=== PATIENT | female | born 2005 | race Caucasian/White ===

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

== ENCOUNTER 2025-05-12 11:44 | Outpatient (CLI) | payer OTHER, SELFPAY ==
--- OUTSIDE RECORDS SUMMARY | 2025-05-12 12:01 | XMS_ITS | Clinical Summary ---
Author Organization [facility] ospital Address [address] [place] [address] Care Team Providers Care Landmen Name Role Phone Carmelo Thacker MD Primary Care Provider [phone] Allergies No known active allergies Medications No [...] History Growth Chart Information Age Height Weight Gyfkex-fou-cdie th Percentile BMI Percentile Head Circum Head Circum Percentile Date 18 years 165.1 cm (5' 5) 54.4 kg (120 lb) 29.12%* 2023 12 years 162.6 cm (5' 4) 45.4 kg (100 lb) 26.73%* 2017 11 years 160 cm (5' 2.99) 43.1 kg (95 lb 0.3 oz) 33.00%* 2016 8 years 134.6 cm (4' 5) 26.8 kg (58 lb 15.9 oz) 22.69%* 2013 * [facility] (Girls, 2-20 Years) Last Filed Vital Signs Vital Sign Reading Time Taken Comments Blood Pressure 106/60 04/05/2017 1:58 PM CDT Pulse 87 04/05/2017 1:58 PM CDT Temperature - - Respiratory Rate - - Oxygen Saturation 99% 04/05/2017 1:58 PM CDT Inhaled Oxygen Concentration - - Weight 54.4 kg (120 lb) 06/09/2024 3:04 PM CDT Height 165.1 cm (5' 5) 06/09/2024 3:04 PM CDT Body Mass Index 19.97 06/09/2024 3:04 PM CDT Body Mass Index Percentile 29.12% 06/09/2024 3:0 4 PM CDT Growth Chart: [facility] (Girls, 2- 20 Years) Plan of Treatment Health Maintenance Due Date Last Done Comments Depression Screening 2005 Hepatitis C Screening 2005 Varicella Vaccines (2 of 2 - 2-dose childhood series) 2009 10/24/2006 DTaP/Tdap/Td Vaccine (2 - Tdap) 2016 7 HPV Vaccines (1 - 3-dose series) 2020 Meningococcal B Vaccine (1 o f 2 - Standard) 2021 Hepatitis B Screening 2023 Regular Well Visit/Exam 18-64 2023 Influenza Vaccine (#1) 2025 Pneumococcal vaccine <65 Aged Out 10/24/2006 No longer eligible based on patient's age to complete this topic Meningococcal Vaccine Completed 12/13/2022 Insurance [employer] [facility] H[facility]/PP[facility] Address: [address] [place] [phone] [employer] [facility]O Address: [address] [place] [phone] [employer] [facility] H[facility]O Address: [address] [place] [phone] Care Teams Landmen Relationship Specialty Start Date End Date Carmelo Thacker MD PCP - General Internal Medicine 05/28/24
--- OUTSIDE RECORDS SUMMARY | 2025-05-12 12:01 | XMS_ITS | Clinical Summary ---
Author Organization [facility] Address [address] [place] [address] Care Team Providers Care Inside Solar Sales Consultant Name Role Phone River Delarosa MD Primary Care Provider [phone] Source Comments [facility],non-owned Affiliates and Associated Physician Practices is amultiple site organization consisting of ambulatory clinics and hospital sitesin [place], [place], [place] and [place]. This disclosure is being madepursuant to the Care Everywhere program and may not contain all information available regarding this patient. Last updated 18.[employer] [facility] Allergies No known active allergies Medications * This document contains information received from the source organization and may not represent a complete record from that organization. * Be aware that medications may not be up to date on this document. Alwaysverify current medications with the patient. 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 Gender Identity Not on file Sexual Orientation [...] 3:31 PM CDT Height 167.6 cm (5' 6) 04/17/2021 3:31 PM CDT Body Mass Index 17.11 04/17/2021 3:31 PM CDT Body Mass Index Percentile 8.39% 04/17/2021 3:3 1 PM CDT Growth Chart: [facility] (Girls, 2- 20 Years) Plan of Treatment Health Maintenance Due Date Last Done Comments HIV SCREENING 2020 HPV VACCINE (1 - 3-dose series) 2020 CHLAMYDIA/GONORRHEA SCREENING 2021 MENINGOCOCCAL (Group B) VACC INE SHARED DECISION-MAKING (1 of 2 - Standard) 2021 HEPATITIS C SCREENING 07/12/2023 COVID-19 VACCINE (1 - 2023-2 5 season) 2024 DTAP/TDAP/TD VACCINES (1 - Tdap) 2024 HEPATITIS B VACCINE (1 of 3 - 19+ 3-dose series) 2024 DEPRESSION SCREENING 09/16/2024 INFLUENZA VACCINE (#1) 2025 ZOSTER VACCINE (1 of 2) 2055 HIB VACCINE Aged Out No longer eligi ble based on patient's age to complete this topic MENINGOCOCCAL GROUPS A/C/Y/W VACCINE Aged Out No longer eligible b ased on patient's age to complete this topic PNEUMOCOCCAL VACCINE Aged Out No long er eligible based on patient's age to complete this topic Insurance [facility] Advance Directives * Full Code (Latest Code Status on File) Date Activated Date Inactivated Comments 08/31/2019 10:24 PM 09/03/2019 4:04 PM Care Teams Inside Solar Sales Consultant Relationship Specialty Start Date End Date River Delarosa MD [address] [place] [id number] PCP - General Pediatrics 10/30/17
[2025-05-12 12:24] LABS: Hematocrit 39.0 % (37.0-47.0); Hemoglobin 13.3 g/dL (12.0-15.0); Immature Granulocyte Percent A 0.3 % (0-0.5); Lymphocytes Absolute Auto 1.71 K/mm3 (0.9-3.2); Mean Corpuscular HGB Conc 34.1 g/dl (32-36); Mean Corpuscular Hemoglobin 30.8 pg (26-34); Mean Corpuscular Volume 90.3 fl (80-100); Nucleated Red Blood Cells Absolute Auto 0.000 K/mm3 (0.0-0.012); Nucleated Red Blood Cells Perc 0.0 % (0.0-0.2); Platelet Count Result 232 k/mm3 (150-375); Red Blood Count 4.32 M/mm3 (4.2-5.4); White Blood Count 6.2 K/mm3 (4.5-10.0)
[2025-05-13 07:09] LABS: Immunoglobulin A, Qn 149 mg/dL (87-352); Immunoglobulin G, Qn 1038 mg/dL (719-1475); Immunoglobulin M, Qn 64 mg/dL (58-230)
[2025-05-13 13:08] LABS: EBV Nuclear Antigen Ab, IgG 67.8 U/mL (0.0-17.9)
== END 2025-05-12 11:45 | disposition home or self-care (01) ==
LOC: ANHLAB 11:59
PROVIDERS: PCP Internal Medicine; Visit Provider Internal Medicine
DX: R59.9 Enlarged lymph nodes, unspecified (principal); R53.83 Other fatigue; Z86.19 Personal history of other infectious and parasitic diseases; R68.83 Chills (without fever)
CPT/HCPCS: 36415; 82784; 85025; 86664; 86665

== ENCOUNTER 2025-05-25 14:40 | Outpatient (CLI) | payer OTHER, SELFPAY ==
--- NOTE | ~2025-05-25 | CT_ITS ---
EXAMINATION: CT sinus w con COMPARISON: None HISTORY: J01.91 - Acute recurrent sinusitis, unspecified TECHNIQUE: Axial images were obtained with intravenous IV contrast. Sagittal, coronal reconstruction images were obtained from the axial views. CT scan performed using dose optimization techniques including the following automated exposure control; adjustment of mA and/or kV; use of iterative reconstruction technique. Automatic exposure control was used to reduce radiation dose. Permanent radiation dose record is archived to PACS. FINDINGS: Frontal sinuses are diminutive. Minimal mucosal thickening in the ethmoidal air cells. Minimal mucosal thickening left maxillary sinus. Complete opacification right maxillary sinus with underlying polyp formation suspected. The ostiomeatal complexes are patent. Nasal septum deviated to the left. Mild thickening of the turbinates but no significant narrowing of the nasal cavities. Sphenoid sinus is unremarkable. No osseous destruction or wall thickening is demonstrated. No significant dental disease in the visualized maxilla. Visualized brain parenchyma soft tissues unremarkable. IMPRESSION: Sinusitis detailed above Reviewed, dictated and finalized at location A. IMPRESSION: Sinusitis detailed above
[2025-05-25 15:13] LABS: Estimated Glomerular Filt Rate > 60
--- OUTSIDE RECORDS SUMMARY | 2025-05-25 16:14 | XMS_ITS | Clinical Summary ---
Author Organization [facility] ospital Address [address] [place] [address] Care Team Providers Care Timber Appraiser Name Role Phone Carmelo Thacker MD Primary Care Provider [phone] Allergies No known active allergies Medications No [...] History Growth Chart Information Age Height Weight Wxfyck-zmp-vlra th Percentile BMI Percentile Head Circum Head Circum Percentile Date 18 years 165.1 cm (5' 5) 54.4 kg (120 lb) 29.12%* 2023 12 years 162.6 cm (5' 4) 45.4 kg (100 lb) 26.73%* 2017 11 years 160 cm (5' 2.99) 43.1 kg (95 lb 0.3 oz) 33.00%* 2016 8 years 134.6 cm (4' 5) 26.8 kg (58 lb 15.9 oz) 22.69%* 2013 * [facility] (Girls, 2-20 Years) Last Filed Vital Signs [...] 06/09/2024 3:0 4 PM CDT Growth Chart: [facility] (Girls, 2- 20 Years) Plan of Treatment [...] Completed 12/13/2022 Insurance [employer] Care Teams Timber Appraiser Relationship Specialty Start Date End Date Carmelo Thacker MD PCP - General Internal Medicine 05/28/24
== END 2025-05-25 14:41 | disposition home or self-care (01) ==
PROVIDERS: PCP Internal Medicine; Visit Provider Internal Medicine
DX: J01.91 Acute recurrent sinusitis, unspecified (principal)
CPT/HCPCS: 70487; Q9967

== ENCOUNTER 2025-05-26 13:36 | Outpatient (CLI) | payer OTHER, SELFPAY ==
--- NOTE | ~2025-05-26 | US_ITS ---
EXAMINATION: US soft tissue head and neck DATE: 05/26/2025 14:01 INDICATION: Localized swelling, mass and lump, head. TECHNIQUE: Multiple grayscale and Doppler ultrasound images of the head and neck were obtained. COMPARISON: None FINDINGS: There are normal lymph nodes in the neck bilaterally. IMPRESSION: 1. No abnormal neck mass or lymphadenopathy. Reviewed, dictated and finalized at location E.
--- OUTSIDE RECORDS SUMMARY | 2025-05-26 14:18 | XMS_ITS | Clinical Summary ---
Author Organization [facility] Address [address] [place] [address] Care Team Providers Care Tissue Recovery Technician Name Role Phone River Delarosa MD Primary Care Provider [phone] Source Comments [facility],non-owned Affiliates and Associated Physician Practices is amultiple site organization consisting of ambulatory clinics and hospital sitesin [place], [place], [place] and [place]. This disclosure is being madepursuant to the Care Everywhere program and may not contain all information available regarding this patient. 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 Gender Identity Not on file Sexual Orientation [...] - Standard) 2021 HEPATITIS C SCREENING 07/12/2023 DTAP/TDAP/TD VACCINES (1 - Tdap) 2024 HEPATITIS B VACCINE (1 of 3 - 19+ 3-dose series) 2024 DEPRESSION SCREENING 09/16/2024 COVID-19 VACCINE (1 - 2023-2 5 season) 2025 INFLUENZA VACCINE (#1) 2025 ZOSTER VACCINE (1 of 2) 2055 HIB VACCINE Aged Out No longer eligi ble based on patient's age to complete this topic MENINGOCOCCAL GROUPS A/C/Y/W VACCINE Aged Out No longer eligible b ased on patient's age to complete this topic PNEUMOCOCCAL VACCINE Aged Out No long er eligible based on patient's age to complete this topic Insurance [facility] Advance Directives * Full Code (Latest Code Status on File) Date Activated Date Inactivated Comments 08/31/2019 10:24 PM 09/03/2019 4:04 PM Care Teams Tissue Recovery Technician Relationship Specialty Start Date End Date River Delarosa MD [address] [place] [phone] PCP - General Pediatrics 10/30/17
--- OUTSIDE RECORDS SUMMARY | 2025-05-26 14:18 | XMS_ITS | Clinical Summary ---
Author Organization [facility] Address [address] [place] [address] Care Team Providers Care Reconciliation Analyst Name Role Phone Carmelo Thacker MD Primary Care Provider [phone] Allergies No known active allergies Medications No [...] History Growth Chart Information Age Height Weight Eibbzj-zuy-ecvg th Percentile BMI Percentile Head Circum Head Circum Percentile Date 18 years 165.1 cm (5' 5) 54.4 kg (120 lb) 29.12%* 2023 12 years 162.6 cm (5' 4) 45.4 kg (100 lb) 26.73%* 2017 11 years 160 cm (5' 2.99) 43.1 kg (95 lb 0.3 oz) 33.00%* 2016 8 years 134.6 cm (4' 5) 26.8 kg (58 lb 15.9 oz) 22.69%* 2013 * [facility] (Girls, 2-20 Years) Last Filed Vital Signs [...] 06/09/2024 3:0 4 PM CDT Growth Chart: [facility] (Girls, 2- 20 Years) Plan of Treatment [...] [employer] Care Teams Reconciliation Analyst Relationship Specialty Start Date End Date Carmelo Thacker MD PCP - General Internal Medicine 05/28/24
== END 2025-05-26 13:37 | disposition home or self-care (01) ==
PROVIDERS: PCP Internal Medicine; Visit Provider Internal Medicine
DX: R22.0 Localized swelling, mass and lump, head (principal); R22.1 Localized swelling, mass and lump, neck
CPT/HCPCS: 76536

== ENCOUNTER 2025-06-28 03:11 | Day surgery (SDC) | payer OTHER, SELFPAY ==
[2025-06-22 12:47] VITALS: BMI 19.1
--- NOTE | 2025-06-22 13:03 | SUR.PREOP ---
[facility] has started construction of its new state of the art ER which will open Spring 2026. With this, we anticipate parking may be a challenge for some our surgical patients and families. Parking spaces are limited but are available for all Surgical, obstetrics, and ER patients sharing this lot. If you arrive and find you are having a hard time finding a parking space, please note that we understand the challenges, please drive around the hospital and park near Hospital Entrance 1. When you enter this entrance, you can ask a volunteer to direct or take you back to the surgical waiting area to check in. We appreciate everyone?s understanding of these expected challenges while we build for your future. Report to the Outpatient Waiting Room, entrance under the green pavilion located off [address], at time _830am on date _06/28/25 . Planned Procedure Time: __1030 .? Time changes happen often and if your time is changed the preop area will call you the afternoon before. - You and your visitor will be asked to self-screen and do not enter if you have any COVID symptoms. Please call surgeon if you need to reschedule. - A mask is optional within the hospital at this time. Patients may have clear liquids (water, carbonated beverages, clear teas, apple juice) until 3 hours prior to surgery with a maximum of 20 ounces. - No food from midnight until time of surgery and no smoking, or chewing tobacco (or any form of nicotine). No chewing gum, candy or mints. Take only the following medications with a SIP of water on the morning of surgery: ____None___ DO NOT STOP ANY OF YOUR OTHER PRESCRIPTION MEDICATIONS PRIOR TO SURGERY EXCEPT THE FOLLOWING Hold all vitamins and supplements for 3 days per anesthesiologist. Medications to discontinue per physician None Date to take last dose__n/a Please no make-up, nail equatorial guinean, hairspray, perfume, deodorant, or body powder the day of surgery.? No jewelry (including any body piercings) or valuables the day of surgery, leave them at home.? Please take a shower or bath the night before, or the morning of, surgery with an antibacterial soap.? Wear comfortable, loose fitting clothing.? Children are encouraged to wear pajamas. - Jewelry must be removed prior to entering the operating room.? Rings and piercings that are not removed may be cut off. - The hospital will not accept responsibility for valuables.? - Please leave all valuables, including medications, at home the day of surgery. If you are going home after surgery, a licensed armored car driver must drive you home.? - NO public transportation without another adult if you receive anesthesia. - We recommend that an adult stay with you for 24 hours following discharge. - We also recommend that you do not drive, make important decision, drink alcoholic beverages, or take any drugs that were not prescribed by your health care provider for at least 24 hours after your discharge time. Follow any additional instructions given to you from your surgeon. Telephone instructions given to __Rae and asked if any additional questions and then verbalized understanding. Patient advised to call surgeon office or pre surgery nurse liaison [phone] if any additional questions.
--- NOTE | 2025-06-25 16:29 | PM.IMHP ---
H&P: HPI History of Present Illness Date/Time: 06/25/25 16:29 Chief Complaint: Chronic sinusitis septal deviation Narrative: planned surgical procedure Review of Systems Review of Systems: All systems reviewed & are unremarkable except as noted in HPI and below PMFSH Past Medical History Medical History Mononucleosis Adult BMI 19-24 kg/sq m Fever Cough Ear pain Sinus infection Low back pain Chronic joint pain Dextroscoliosis Muscle weakness Chronic low back pain Vitamin D deficiency Follow up Encounter to establish care BMI,pediatric 5% - <85% Anxiety Family History Family History Mother Depression Anxiety Father Anxiety Depression Hypertension Sibling Anxiety Depression Grandparent Diabetes mellitus Hypertension Cerebrovascular accident Social History Social History Social History: Caffeine- tea/ cola Smoking status: Never smoker Tobacco type: e-cigarettes/vaping Second hand tobacco smoke exposure: No Additional smoking assessment comments: vaping on weekends for 3years Alcohol intake: current Alcohol use details: only on certain occasions, less than weekly. Substance use: never Substance use type: does not use Lack of Transportation: No Lack of Food: Never True Current Housing: I Have Housing Concerned About Future Housing: No Difficulty Paying Gas/Electric Bills: No Difficulty Paying for Meds: No Currently Unemployed: No Living arrangements: with family Occupation/Education: student Gender identity (if verbalized by the patient): Female Spiritual care concerns: No Meds Home Medications and Allergies Home Medications ?Medication ?Instructions ?Recorded ?Confirmed ?Type triamcinolone acetonide 55 mcg 2 spray intranasal BID PRN 02/21/23 06/22/25 Rx nasal spray aerosol (Nasacort) sinusitis #16.9 mL spironolactone 50 mg tablet 50 mg PO BID 06/22/25 06/22/25 History Allergies Allergy/AdvReac Type Severity Reaction Status Date / Time No Known Allergies Allergy Mild Verified 06/22/25 12:44 Exam Narrative: septal deviation chronic sinusitis Assessment and Plan Assessment and plan (1) Nasal septal deviation: Code(s): J34.2 - Deviated nasal septum Status: Acute Assessment and Plan: plan OR right-sided image guided endoscopic maxillary antrostomy with tissue removal as well as possible septoplasty. Total operative time 1-2 hours. Risks were discussed bleeding infection damage to structures need for further procedures change in taste change in swallow septal perforation time off work time off school inherent risk of medication or cotton cues. Change in vision, change in vision is somewhat expected after this procedure given the silent sinus syndrome. Change in vision total blindness CSF leak brain brain damage. Change in cosmetic appearance of nose. Need for further procedures failure to resolve symptoms. Damage to any structure above the clavicles by myself. Damage to any structure induction remains of anesthesia including vocal cord paralysis. Damage to nerve innervating anterior dentition. (2) Chronic sinusitis: Code(s): J32.9 - Chronic sinusitis, unspecified Status: Acute
[2025-06-28] VITALS (11 sets, daily range): BP systolic 112–130; BP diastolic 72–88; PULSE 68–111; RESP 12–20; TEMP 36.3–37.3; O2SAT 100
--- OUTSIDE RECORDS SUMMARY | 2025-06-28 03:14 | XMS_ITS | Clinical Summary ---
Author Organization [facility] Address [address] [place] [address] Care Team Providers Care Sales Account Coordinator Name Role Phone Carmelo Thacker MD Primary Care Provider [phone] Allergies No known active allergies Medications No [...] History Growth Chart Information Age Height Weight Fhmiqi-zza-dupo th Percentile BMI Percentile Head Circum Head [...] Completed 12/13/2022 Insurance [employer] [facility] HMO/PPO Address: [address] [place] [phone] [employer] [facility] H[facility]/PPO Address: [address] [place] [phone] [employer] [facility] H[facility]/PPO Address: [address] [place] [phone] Care Teams Sales Account Coordinator Relationship Specialty Start Date End Date Carmelo Thacker MD PCP - General Internal Medicine 05/28/24
--- NOTE | 2025-06-28 07:17 | WPDHPUPDATE1 ---
History and Physical Update Update Date/Time: 06/28/25 07:17 History and Physical has been reviewed, including an updated exam of the patient. There are NO changes in the patient's condition. Risks, benefits, and alternatives have been discussed and questions answered. Patient agrees to proceed with procedure.
--- NOTE | 2025-06-28 08:03 | P.PNAN_ITS ---
Anes - Eval Pre Procedure Procedure: Operation Date: 06/28/25 10:30 Proposed Procedures p Image Guided Right Endoscopic Maxillary Antrostomy with Tissue Removal, - Carrington Denton MD s Possible Septoplasty - Carrington Denton MD Date/Time: 06/28/25 08:03 Pre Op Diagnosis: chronic sinusitis, deviated septum Patient Data Age: 19 Gender: F Height: 1.65 m Weight: 52.2 kg Allergies Allergy/AdvReac Type Severity Reaction Status Date / Time No Known Allergies Allergy Mild Verified 06/22/25 12:44 Home Medications ?Medication ?Instructions ?Recorded ?Confirmed ?Type triamcinolone acetonide 55 mcg 2 spray intranasal BID PRN 02/21/23 06/22/25 Rx nasal spray aerosol (Nasacort) sinusitis #16.9 mL spironolactone 50 mg tablet 50 mg PO BID 06/22/2504/09 History Patient hx anesthesia problems: none Family hx anesthesia problems: none Results Review: All pre-operative results and documents have been reviewed as part of the pre- operative evaluation. [facility] Past Medical History Medical History Mononucleosis Adult BMI 19-24 kg/sq m Fever Cough Ear pain Sinus infection Low back pain Chronic joint pain Dextroscoliosis Muscle weakness Chronic low back pain Vitamin D deficiency Follow up Encounter to establish care BMI,pediatric 5% - <85% Anxiety Family History Family History Mother Depression Anxiety Father Anxiety Depression Hypertension Sibling Anxiety Depression Grandparent Diabetes mellitus Hypertension Cerebrovascular accident Social History Social History Social History: Caffeine- tea/ cola Smoking status: Never smoker Tobacco type: e-cigarettes/vaping Second hand tobacco smoke exposure: No Additional smoking assessment comments: vaping on weekends for 3years Alcohol intake: current Alcohol use details: only on certain occasions, less than weekly. Substance use: never Substance use type: does not use Lack of Transportation: No Lack of Food: Never True Current Housing: I Have Housing Concerned About Future Housing: No Difficulty Paying Gas/Electric Bills: No Difficulty Paying for Meds: No Currently Unemployed: No Living arrangements: with family Occupation/Education: student Gender identity (if verbalized by the patient): Female Spiritual care concerns: No Exam Day of Procedure 06/28/25 08:03 Patient weight: normal
[2025-06-28] MEDS: ACETAMINOPHEN 500 MG TABLET 1000 MG PO (09:10)
[2025-06-28] MEDS: LACTATED RINGERS 1,000 ML 30 ML IV CONT ×2 (09:15→11:35)
--- NOTE | 2025-06-28 09:17 | WPDANESEPPF ---
Anes - Initial Pre Proc Eval Procedure: Operation Date: 06/28/25 10:30 Proposed Procedures p Image Guided Right Endoscopic Maxillary Antrostomy with Tissue Removal, - Carrington Denton MD s Possible Septoplasty - Carrington Denton MD Date/Time: 06/28/25 09:17 Surgeon: Carrington Denton MD Pre Op Diagnosis: chronic sinusitis, deviated septum Patient Data Age: 19 Gender: F Height: 1.65 m Weight: 52.2 kg Allergies Allergy/AdvReac Type Severity Reaction Status Date / Time No Known Allergies Allergy Mild Verified 06/22/25 12:44 Home Medications ?Medication ?Instructions ?Recorded ?Confirmed ?Type triamcinolone acetonide 55 mcg 2 spray intranasal BID PRN 02/21/23 06/22/25 Rx nasal spray aerosol (Nasacort) sinusitis #16.9 mL spironolactone 50 mg tablet 50 mg PO BID 06/22/25 06/22/25 History Patient hx anesthesia problems: none Family hx anesthesia problems: none Results Review: All pre-operative results and documents have been reviewed as part of the pre-operative evaluation. [facility] Past Medical History Medical History Mononucleosis Adult BMI 19-24 kg/sq m Fever Cough Ear pain Sinus infection Low back pain Chronic joint pain Dextroscoliosis Muscle weakness Chronic low back pain Vitamin D deficiency Follow up Encounter to establish care BMI,pediatric 5% - <85% Anxiety Family History Family History Mother Depression Anxiety Father Anxiety Depression Hypertension Sibling Anxiety Depression Grandparent Diabetes mellitus Hypertension Cerebrovascular accident Social History Social History Social History: Caffeine- tea/ cola Smoking status: Never smoker Tobacco type: e-cigarettes/vaping Second hand tobacco smoke exposure: No Additional smoking assessment comments: vaping on weekends for 3years Alcohol intake: current Alcohol use details: only on certain occasions, less than weekly. Substance use: never Substance use type: does not use Lack of Transportation: No Lack of Food: Never True Current Housing: I Have Housing Concerned About Future Housing: No Difficulty Paying Gas/Electric Bills: No Difficulty Paying for Meds: No Currently Unemployed: No Living arrangements: with family Occupation/Education: student Gender identity (if verbalized by the patient): Female Spiritual care concerns: No Anes - Eval Final PreProcedure Day of Procedure 06/28/25 09:17 Patient weight: thin Heart: regular rate and rhythm Lungs: clear to auscultation Airway: Mallampati scale class II Neurological: alert and oriented Last oral intake: >/= 8 hours ASA classification: I Emergent: no Anesthetic plan: proceed Anesthesia type and monitoring: general ETT and standard monitoring Results Review: All pre-operative results and documents have been reviewed as part of the pre-operative evaluation. Informed Consent: The patient's anesthetic plan and its attendant risks and benefits were discussed with the patient/family/POA. Questions were solicited and answers provided to the satisfaction of the patient/family/POA.
[2025-06-28 09:24] LABS: BEDSIDEPREGUCG Negative (Negative)
[2025-06-28] MEDS: SCOPOLAMINE 1 MG PATCH 1 PATCH TRANSDERM (09:28)
[2025-06-28] MEDS: ceFAZolin 2 GM in SODIUM CHLORIDE 0.9% IV 50 ML 100 ML IVPB (10:08)
--- NOTE | 2025-06-28 10:12 | W.PM.PROC2 ---
Procedure Note - Detailed Date of Procedure 06/28/25 Pre-op Diagnosis chronic sinusitis, deviated septum, silent sinus syndrome right Post-op Diagnosis Same Procedure Performed 1. Endoscopic image guided right-sided maxillary antrostomy with tissue removed Surgeon Carrington Denton MD Anesthesia General Indications See above Findings Have severely sucked in uncinate lateral medial wall of the maxillary sinus. Was able to remove it ensured connection to the natural os avoid injury to the orbit. Description of Procedure Patient identified consent verified in the preoperative holding area. Patient brought to the operating room. Time-out performed. General anesthesia induced endotracheal tube secured airway. Patient prepped draped position procedure confirmed image guidance initiated confirmed 2nd time-out performed. Right-sided viewed medialized turbinate with the [place] middle turbinate. Was then able to enter the under image guidance of course the posterior aspect of the sinus pulling the uncinate down opening up the sinus itself. Then use a combination of straight through cut backbiter up-biting upside down through cut stump burger down-biting forceps and a course image to guided microdebrider 45 degree and 0 to remove all the bony partition. The sinus was filled with polypoid edema which was removed as well as thick thick inset patent mucus. This was completely removed. The wound was then copiously irrigated with sterile normal saline. Again no via obvious injury to nasolacrimal duct or orbit. I would ensured get 30 degree scope that the natural os connected to the surgical os. Blood loss only about 15 cc. Patient tolerated the procedure very well no complications. Care the patient is back to Anesthesiology. Patient taken to PACU.
[2025-06-28] MEDS: LIDO 1%/EPINEPHRINE 1:100,000 20 ML VIAL 5 ML INFILTRATE (10:51)
[2025-06-28] MEDS: fentaNYL CITRATE INJ (*CRX) 100 MCG/2 ML VIAL 25 MCG IV PUSH (12:03)
[2025-06-28] MEDS: ONDANSETRON INJ 4 MG/2 ML VIAL IV PUSH (12:13)
[2025-06-28] MEDS: oxyCODONE HCL (*CRX) 5 MG TAB IR PO (12:43)
== END 2025-06-28 13:30 | disposition home or self-care (01) ==
PROVIDERS: Anesthesiology; PCP Internal Medicine; Visit Provider Otolaryngology
PROC: (CPT 31267; principal; 2025-06-28 10:30)
DX: J32.9 Chronic sinusitis, unspecified (principal); J34.2 Deviated nasal septum; G89.18 Other acute postprocedural pain; E55.9 Vitamin D deficiency, unspecified; F41.9 Anxiety disorder, unspecified; G89.29 Other chronic pain; M54.50 Low back pain, unspecified; F17.290 Nicotine dependence, other tobacco product, uncomplicated
CPT/HCPCS: 31267; J0690; A9270; J1100; J2003; J2004; J2250; J2405; J2704; J3010; J7120

== ENCOUNTER 2025-08-09 12:49 | Outpatient (CLI) | payer OTHER, SELFPAY ==
[2025-08-09 14:26] LABS: Influenza A QL RT-PCR Negative (Negative); Influenza B QL RT-PCR Negative (Negative); RSV RNA, RT-PCR Negative (Negative); SARS-CoV-2 RNA PCR Negative (Negative)
--- OUTSIDE RECORDS SUMMARY | 2025-08-09 14:46 | XMS_ITS | Clinical Summary ---
Author Organization [facility] Address [address] [place] [address] Care Team Providers Care Under Water Assistant Name Role Phone River Delarosa MD Primary Care Provider [phone] Source Comments [facility],non-owned Affiliates and Associated Physician Practices is amultiple site organization consisting of ambulatory clinics and hospital sitesin [place], [place], [place] and [place]. This disclosure is being madepursuant to the Care Everywhere program and may not contain all information available regarding this patient. Last updated [employer] [facility] Allergies No known active allergies Medications * [...] on file Legal Sex Female 8:07 AM AGENCY LEGAL COUNSEL Gender Identity Not on file Sexual Orientation [...] Mass Index 17.11 04/17/2021 3:31 PM CDT Plan of Treatment Health Maintenance Due Date [...] DEPRESSION SCREENING 09/16/2024 COVID-19 VACCINE (1 - 2024-2 6 season) 2025 INFLUENZA VACCINE (#1) 2025 ZOSTER VACCINE (1 of 2) 2055 HIB VACCINE Aged Out No longer eligi ble based on patient's age to complete this topic MENINGOCOCCAL GROUPS A/C/Y/W VACCINE Aged Out No longer eligible b ased on patient's age to complete this topic PNEUMOCOCCAL VACCINE Aged Out No long er eligible based on patient's age to complete this topic Insurance [facility] Advance Directives * Full Code (Latest Code Status on File) Date Activated Date Inactivated Comments 08/31/2019 10:24 PM 09/03/2019 4:04 PM Care Teams Under Water Assistant Relationship Specialty Start Date End Date River Delarosa MD [id number] [place] [id number] PCP - General Pediatrics 10/30/17
--- OUTSIDE RECORDS SUMMARY | 2025-08-09 14:46 | XMS_ITS | Clinical Summary ---
Author Organization [facility] Address [address] [place] [address] Care Team Providers Care Director Plans Name Role Phone Carmelo Thacker MD Primary Care Provider [phone] Allergies No known active allergies Medications No [...] Mass Index 19.97 06/09/2024 3:04 PM CDT Plan of Treatment Health Maintenance [...] this topic Meningococcal Vaccine Completed 12/13/2022 Insurance [employer] [facility] HMO/PPO Address: [facility] [address] [place] [address] [employer] [facility] HMO/PPO Address: [address] [address] [facility] HMO/PPO Address: [address] [address] Care Teams Director Plans Relationship Specialty Start Date End Date Carmelo Thacker MD PCP - General Internal Medicine 05/28/24
== END 2025-08-09 12:50 | disposition home or self-care (01) ==
LOC: ANHLAB 12:50
PROVIDERS: PCP Internal Medicine; Visit Provider Internal Medicine
DX: R05.9 Cough, unspecified (principal); R09.89 Other specified symptoms and signs involving the circulatory and respiratory systems; J34.89 Other specified disorders of nose and nasal sinuses; R09.81 Nasal congestion; R68.83 Chills (without fever); R53.83 Other fatigue
CPT/HCPCS: 87637